=== PATIENT | female | born 1980 | race Caucasian/White ===

== ENCOUNTER → 2016-09-01 | Outpatient (CLI) | payer BC ==
[2016-09-01 08:35] LABS: Basophils # (A) 0.1 k/uL (0-0.2); Basophils % (A) 1 %; CH 31.6; CHCM 35.7; Eosinophils # (A) 0.2 k/uL (0-0.7); Eosinophils % (A) 3 %; HCT 41.2 % (34.0-46.0); HDW 2.82; HGB 14.7 gm/dL (11.4-16.0); Luc # (Auto) 0.14; Luc % (Auto) 2; Lymphocytes # (A) 2.3 k/uL (1.0-4.8); Lymphocytes % (A) 35 %; MCH 31.6 pg (25.0-35.0); MCHC 35.6 g/dL (31.0-37.0); MCV 88.8 fL (80.0-100.0); Mean Platelet Volume 6.8; Monocytes # (A) 0.4 k/uL (0-1.0); Monocytes % (A) 6 %; Neutrophils # (A) 3.5 k/uL (1.3-7.7); Neutrophils % (A) 53 %; RBC 4.65 m/uL (3.80-5.40); WBC 6.6 k/uL (3.8-10.6); WBC (Perox) 6.21
[2016-09-01 11:47] LABS: ALT 42 U/L (9-52); AST 24 U/L (14-36); Alkaline Phosphatase 52 U/L (38-126); Anion Gap 11 mmol/L; Blood Urea Nitrogen 10 mg/dL (7-17); Calcium 9.8 mg/dL (8.4-10.2); Carbon Dioxide 26 mmol/L (22-30); Chloride 105 mmol/L (98-107); Cholesterol 213 mg/dL (<200); Glucose 92 mg/dL (74-99); HDL Cholesterol 38 mg/dL (40-60); Non-African American GFR(MDRD) >60 (>60 ml/min/1.73 sqM); Potassium 4.6 mmol/L (3.5-5.1); Sodium 142 mmol/L (137-145); Total Bilirubin 0.4 mg/dL (0.2-1.3); Total Protein 7.2 g/dL (6.3-8.2); Triglycerides 196 mg/dL (<150)
== END | disposition home or self-care (01) ==
LOC: LABWHC1 08:04
PROVIDERS: ATTEND Family Medicine
DX: Z00.00 Encounter for general adult medical examination without abnormal findings (principal)
CPT/HCPCS: 36415; 80053; 80061; 82652; 84443; 85025

== ENCOUNTER → 2017-10-22 | Outpatient (CLI) | payer BC ==
--- NOTE | 2017-10-22 15:12 | US ---
EXAMINATION TYPE: US pelvic complete DATE OF EXAM: 10/22/2017 COMPARISON: Pelvic ultrasound August 28, 2013. CLINICAL HISTORY: N921 Excessive and Frequent Menstruation x 2 years; endometrial ablation approximat jamey 6 years ago per patient; right pelvic pain TECHNIQUE: Transvaginal (TV) and Transabdominal (TA) . Transabdominal sonographic images of the pel vis were acquired. Transvaginal sonographic images were medically necessary to better assess the fol lowing anatomy: endometrium and left ovary Date of LMP: 3 weeks ago EXAM MEASUREMENTS: Uterus: 9.0 x 6.4 x 3.9 cm Endometrial Stripe: 0.4 cm at hyperechoic area mid uterus Right Ovary: 1.0 x 3.1 x 2.6 cm Left Ovary: 4.6 x 1.7 x 1.8 cm 1. Uterus: Anteverted; Couple of Nabothian Cysts in cervix with larger = 0.4 x 0.4 x 0.3cm; couple o f uterine fibroids: lower uterine segment oval hypoechoic area is seen midline = 1.5 x 1.2 x 0.7cm an d upper left myometrium = 1.5 x 1.0 x 1.2cm 2. Endometrium: fluid area = 1.3 x 1.0 x 1.0cm is noted upper area where endometrium would be; small hyperechoic area is measured in upper mid endometrium and could be remnant endometrial tissue post a blation. 3. Right Ovary: involuting cyst = 2.0 x 2.3 x 2.1cm is noted with peripheral ring of color flow 4. Left Ovary: couple of follicular cysts noted with larger = 1.3 x 1.3 x 1.1cm Spectral, color and waveform doppler imaging shows good arterial and venous flow within the ovaries . 5. Bilateral Adnexa: small amount of fluid is noted medial to left ovary 6. Posterior cul-de-sac: wnl There is heterogeneous anteverted uterus. Peripheral hypoechoic lesions favor small subserosal fibroi ds. Tiny amount of Fluid is seen within endometrial canal. No suspicious endometrial thickening. Some nonsimple fluid lower uterine segment suspicious for small degree of blood product. Some small nabot hian cysts in cervix are present. No free fluid in pelvic cul-de-sac. Small amount of free fluid gregory cent left ovary. Both ovaries identified. IMPRESSION: No suspicious thickening of endometrium.
== END | disposition home or self-care (01) ==
LOC: RADUSWWP 13:20
PROVIDERS: ATTEND Family Medicine
DX: N92.1 Excessive and frequent menstruation with irregular cycle (principal)
CPT/HCPCS: 76830; 76856

== ENCOUNTER → 2020-12-21 | Outpatient (CLI) | payer BC ==
--- NOTE | 2020-12-22 12:39 | MM ---
Reason for exam: screening (asymptomatic). Last mammogram was performed 5 years and 4 months ago. Physical Findings: A clinical breast exam by your physician is recommended on an annual basis and results should be correlated with mammographic findings. MG Screening Mammo w CAD Bilateral CC and MLO view(s) were taken. Prior study comparison: August 24, 2015, bilateral MG screening mammo w CAD. The breast tissue is heterogeneously dense. This may lower the sensitivity of mammography. Focal asymmetry 11mm anterior slight inner lower quadrant and 8mm middle inner lower quadrant of right breast. ASSESSMENT: Incomplete: need additional imaging evaluation, BI-RAD 0 RECOMMENDATION: Special view mammogram and ultrasound of the right breast. [facility] will attempt to contact patient to return for supplemental views and ultrasound.
== END | disposition home or self-care (01) ==
LOC: RADMAMWWP 07:11
PROVIDERS: ATTEND Obstetrics & Gynecology
DX: Z12.31 Encounter for screening mammogram for malignant neoplasm of breast (principal)
CPT/HCPCS: 77067

== ENCOUNTER → 2020-12-27 | Outpatient (CLI) | payer BC ==
--- NOTE | 2020-12-27 11:15 | MM ---
Reason for exam: additional evaluation requested from abnormal screening. Last mammogram was performed less than 1 month ago. Physical Findings: Nurse Summary: 0.5cm nodule in the right breast at 4 o'clock and 5 o'clock (nurse donald). MG 3D Work Up W/Cad RT Spot compression CC, spot compression MLO, and LM view(s) were taken of the right breast. Prior study comparison: December 21, 2020, bilateral MG screening mammo w CAD. August 24, 2015, bilateral MG screening mammo w CAD. The breast tissue is heterogeneously dense. This may lower the sensitivity of mammography. The two questioned focal asymmetries medially becomes less defined. One at an anterior depth incompletely disperses on 3D images. Two palpable markers are present more posteriorly. These results were verbally communicated with the patient and result sheet given to the patient on 12/27/20. ASSESSMENT: Incomplete: need additional imaging evaluation, BI-RAD 0 RECOMMENDATION: Ultrasound of the right breast. (lower inner quadrant)
--- NOTE | 2020-12-27 11:17 | USB ---
Reason for exam: additional evaluation requested from abnormal screening. US Breast Workup Limited RT Right limited breast ultrasound including focal area of concern, retroareolar and axilla demonstrates a 0.7 x 0.5 x 0.3cm oval, solid, hyperechoic lesion at 4 o'clock suggesting a benign lipoma. No other solid or cystic lesion. Scanned 3-6 o'clock. These results were verbally communicated with the patient and result sheet given to the patient on 12/27/20. ASSESSMENT: Probably benign, BI-RAD 3 RECOMMENDATION: Follow-up diagnostic mammogram of the right breast in 6 months. Manage on a clinical basis with regard to any suspicious palpable abnormalities.
== END | disposition home or self-care (01) ==
LOC: RADMAMWWP 09:31
PROVIDERS: ATTEND Obstetrics & Gynecology
DX: R92.8 Other abnormal and inconclusive findings on diagnostic imaging of breast (principal)
CPT/HCPCS: 77061; 77065

== ENCOUNTER → 2021-04-28 | Outpatient (CLI) | payer BC ==
--- NOTE | 2021-04-28 20:09 | CT ---
EXAMINATION TYPE: CT abdomen pelvis wo con CT DLP: 1149.2 mGycm, Automated exposure control for dose reduction was used. DATE OF EXAM: 04/28/2021 7:36 PM COMPARISON: CT abdomen pelvis most recent from 03/04/2014. CLINICAL INDICATION:Female, 41 years old with history of R10.2 pelvic and perineal pain; RLQ AND PELV IC PAIN TECHNIQUE: Standard CT of the abdomen and pelvis following the administration of oral contrast. Cor onal and sagittal reformats were performed. FINDINGS: LOWER CHEST: Unremarkable ABDOMEN LIVER: Unremarkable GALLBLADDER AND BILE DUCTS: Unremarkable. PANCREAS: Unremarkable. SPLEEN: Unremarkable. ADRENAL GLANDS: Unremarkable. KIDNEYS AND URETERS: No evidence of hydronephrosis or renal calculus. The ureters are unremarkable. PELVIS BLADDER: Unremarkable REPRODUCTIVE: Unremarkable. ABDOMEN & PELVIS STOMACH AND BOWEL: No evidence of bowel obstruction. Appendix is not definitively visualized however there is no secondary signs to suggest acute appendicitis. PERITONEUM: No evidence of pneumoperitoneum or free fluid. VASCULATURE: No evidence of aortic aneurysm. MUSCULOSKELETAL: No acute osseous abnormalities LYMPH NODES: No gross evidence for lymphadenopathy. SOFT TISSUE/ABDOMINAL WALL: Unremarkable IMPRESSION: No evidence for acute intra-abdominal process finding to explain the patient's symptomology..
== END | disposition home or self-care (01) ==
LOC: RADCTMAIN 17:07
PROVIDERS: ATTEND Family Medicine
DX: R10.2 Pelvic and perineal pain (principal)
CPT/HCPCS: 74176

== ENCOUNTER → 2021-05-15 | Outpatient (CLI) | payer BC ==
--- NOTE | 2021-05-15 15:48 | US ---
EXAMINATION TYPE: US pelvic complete DATE OF EXAM: 05/15/2021 COMPARISON: CT 2021, US 2018 CLINICAL HISTORY: 41-year-old female R10.2 PELVIC AND PERINEAL PAIN,N94.6 DYSMENORRHEA. Intermittent right pelvic pain x many years , 2, para 2, abnormal cycles, history of uterine ablation and tubal ligation TECHNIQUE: . Transabdominal sonographic images of the pelvis were acquired. Transvaginal sonographi c images were medically necessary to better assess the following anatomy: endometrium and ovaries Date of LMP: Unsure FINDINGS: EXAM MEASUREMENTS: Uterus: 9.5 x 4.1 x 5.8 cm Endometrial Stripe: 0.4 cm Right Ovary: 2.7 x 1.8 x 1.8 cm Left Ovary: 2.0 x 1.3 x 1.5 cm 1. Uterus: anteverted, the myometrium is heterogeneous, 1.9 x 2.3 x 2.0cm echogenic area within the fundus. There is a 1.6 x 1.6 x 1.7cm fibroid along the left posterior uterine body which is primarily intramural. 4.7 x 2.2 x 4.1cm hypoechoic area within cervix 2. Endometrium: visualized portions appear wnl 3. Right Ovary: 1.0cm follicle 4. Left Ovary: wnl 5. Bilateral Adnexa: wnl 6. Posterior cul-de-sac: wnl IMPRESSION: 1. Large round echogenic area, one along the fundus of the uterus measuring 2.3 cm and the second in the region of the cervix measuring 4.7 cm. Etiology is unclear. Atypical fibroids, areas of focal end ometrial hyperplasia/adenomyomas, or large polyps or differential. 6 - 8 week follow-up ultrasound re commended to reassess. If the findings persist, recommend female pelvic MRI. 2. A 1.7 cm focal fibroid along the left posterior uterine body is primarily intramural.
== END | disposition home or self-care (01) ==
LOC: RADUSWWP 13:18
PROVIDERS: ATTEND Family Medicine
DX: D25.9 Leiomyoma of uterus, unspecified (principal); R10.813 Right lower quadrant abdominal tenderness; N94.6 Dysmenorrhea, unspecified; N92.0 Excessive and frequent menstruation with regular cycle
CPT/HCPCS: 76830; 76856

== ENCOUNTER → 2021-07-01 | Outpatient (CLI) | payer BC ==
--- NOTE | 2021-07-02 08:29 | MR ---
EXAMINATION TYPE: MR pelvis wo/w con DATE OF EXAM: 07/01/2021 COMPARISON: CT abdomen and pelvis April 28, 2021. Ultrasound pelvis May 15, 2021. HISTORY: Uterine, cervical fibroids CONTRAST: Standard multiplanar, multisequence MRI departmental protocol images were obtained without contrast a nd with 9 mL intravenous Gadavist gadolinium contrast. FINDINGS: Anteverted uterus is redemonstrated. There is 1.4 cm left typical peripheral fundal uterine fibroid sagittal image 12. Tiny amount of fluid in the endometrial canal extending towards left aspe ct seen axial images 20 through 22. Along the right aspect there is thickening of the junctional zone with tiny areas of increased T2 signal along with additional larger lesion of thin wall showing slig ht T2 hyperintensity and more prominent T1 hyperintensity measuring up to 1.5 cm in size without defi nitive postcontrast enhancement. There is some lobulation along the anterior superior aspect of the r ight uterine wall. Findings could reflect blood product. Atypical fibroids would be in differential. Corresponding to recent ultrasound there is large cervical lesion causing left-sided cervical canal m ovement and effacement. This mass measures 4.4 cm AP diameter x 4.0 CM transversely by 3.8 cm cranioc audal dimension axial image 25 and sagittal image 16 showing T1 isointensity to remainder of the uter us and T1 slight hyperintensity to remainder of the uterus with fairly homogeneous postcontrast enhan cement similar to remainder of the uterus. Given well defined margins a benign lesion such as cervica l fibroid would be favored. Etiology however not completely certain. Significant local mass effect is present. A few tiny nabothian cysts in the lower uterine segment sagittal image 13 with trace free f luid in the pelvic cul-de-sac are noted corresponding to axial image 20. Left ovary is seen axial image 21 with 2.2 cm prominent follicle or thin-walled cyst. Right ovary is normal in size along the right aspect of uterus with few tiny follicles axial image 24. No suspicious small or large bowel dilatation. Urinary bladder appears within normal limits. 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 No suspicious groin adenopathy. IMPRESSION: Lobulated contour to the uterus with at least one typical fibroid. Underlying adenomyosis is thought present. Areas of larger increased T1 signal right fundus could reflect atypical fibroids , etiology not completely certain. Dominant 4.4 cm lesion in the cervix is fairly well-defined Etiology not completely certain could reflect large polyp. Would favor benign etiology given the well -defined appearance on MRI. Significant local mass effect is present however and may necessitate cons ideration for surgery or hysterectomy especially if patient has symptoms of pain. Correlate clinicall y.
== END | disposition home or self-care (01) ==
LOC: RADMRIMAIN 08:48
PROVIDERS: ATTEND Obstetrics & Gynecology
DX: C25.9 Malignant neoplasm of pancreas, unspecified (principal); D25.9 Leiomyoma of uterus, unspecified
CPT/HCPCS: 72197; A9585